=== PATIENT | male | born 1965 | race Caucasian/White ===

== ENCOUNTER 2021-06-18 10:04 | Outpatient (CLI) | payer BC, SELFPAY ==
[2021-06-18 10:29] LABS: Basophils Absolute Auto 0.1 K/mm3 (0.0-0.1); Basophils Percent Auto 0.8 % (0.2-1.2); Eosinophils Absolute Auto 0.2 K/mm3 (0-0.3); Eosinophils Percent Auto 2.4 % (0-4.4); Hemoglobin 14.7 g/dL (14.0-18.0); Immature Granulocyte Absolute 0.02 K/mm3 (0.00-0.031); Immature Granulocyte Percent A 0.2 % (0-0.5); Lymphocytes Absolute Auto 3.11 K/mm3 (0.9-3.2); Mean Corpuscular HGB Conc 33.4 g/dl (32-36); Mean Corpuscular Hemoglobin 31.5 pg (26-34); Mean Corpuscular Volume 94.2 fl (80-100); Mean Platelet Volume 9.6 fl (7.4-10.4); Monocytes Absolute Auto 0.7 K/mm3 (0.1-0.6); Monocytes Percent Auto 7.9 % (2.6-8.5); Neutrophils Absolute Auto 4.5 K/mm3 (1.3-6.7); Neutrophils Percent Auto 52.7 % (45.5-73.1); Platelet Count Result 462 k/mm3 (150-375); Red Blood Count 4.67 M/mm3 (4.6-6.20); Red Cell Distribution Width 13.2 % (11.5-14.5); White Blood Count 8.6 K/mm3 (4.5-10.0)
== END 2021-06-18 10:05 | disposition home or self-care (01) ==
PROVIDERS: PCP Internal Medicine; Visit Provider Internal Medicine
DX: D47.3 Essential (hemorrhagic) thrombocythemia (principal)
CPT/HCPCS: 36415; 85025

== ENCOUNTER 2021-09-24 09:23 | Outpatient (CLI) | payer BC, SELFPAY ==
[2021-09-24 09:44] LABS: Basophils Absolute Auto 0.1 K/mm3 (0.0-0.1); Basophils Percent Auto 0.8 % (0.2-1.2); Eosinophils Absolute Auto 0.2 K/mm3 (0-0.3); Eosinophils Percent Auto 2.5 % (0-4.4); Hematocrit 43.3 % (42.0-52.0); Hemoglobin 14.4 g/dL (14.0-18.0); Immature Granulocyte Absolute 0.02 K/mm3 (0.00-0.031); Immature Granulocyte Percent A 0.3 % (0-0.5); Lymphocytes Absolute Auto 2.82 K/mm3 (0.9-3.2); Lymphocytes Percent Auto 35.4 % (18.3-44.2); Mean Corpuscular HGB Conc 33.3 g/dl (32-36); Mean Corpuscular Hemoglobin 30.8 pg (26-34); Mean Corpuscular Volume 92.7 fl (80-100); Mean Platelet Volume 9.6 fl (7.4-10.4); Monocytes Absolute Auto 0.6 K/mm3 (0.1-0.6); Monocytes Percent Auto 7.8 % (2.6-8.5); Neutrophils Absolute Auto 4.3 K/mm3 (1.3-6.7); Neutrophils Percent Auto 53.2 % (45.5-73.1); Platelet Count Result 455 k/mm3 (150-375); Red Blood Count 4.67 M/mm3 (4.6-6.20); Red Cell Distribution Width 13.5 % (11.5-14.5)
== END 2021-09-24 09:24 | disposition home or self-care (01) ==
LOC: ANHLAB 09:25
PROVIDERS: PCP Internal Medicine; Visit Provider Internal Medicine
DX: D47.3 Essential (hemorrhagic) thrombocythemia (principal)
CPT/HCPCS: 36415; 82728; 85025

== ENCOUNTER 2022-04-11 08:05 | Outpatient (CLI) | payer BC, SELFPAY ==
[2022-04-11 17:42] LABS: Basophils Absolute Auto 0.1 K/mm3 (0.0-0.1); Basophils Percent Auto 1.1 % (0.2-1.2); Eosinophils Absolute Auto 0.2 K/mm3 (0-0.3); Eosinophils Percent Auto 2.9 % (0-4.4); Hematocrit 43.3 % (42.0-52.0); Hemoglobin 14.5 g/dL (14.0-18.0); Immature Granulocyte Absolute 0.02 K/mm3 (0.00-0.031); Immature Granulocyte Percent A 0.3 % (0-0.5); Lymphocytes Percent Auto 34.1 % (18.3-44.2); Mean Corpuscular HGB Conc 33.5 g/dl (32-36); Mean Corpuscular Hemoglobin 31.4 pg (26-34); Mean Corpuscular Volume 93.7 fl (80-100); Mean Platelet Volume 10.4 fl (7.4-10.4); Monocytes Absolute Auto 0.6 K/mm3 (0.1-0.6); Neutrophils Absolute Auto 4.3 K/mm3 (1.3-6.7); Neutrophils Percent Auto 53.6 % (45.5-73.1); Platelet Count Result 489 k/mm3 (150-375); Red Blood Count 4.62 M/mm3 (4.6-6.20); Red Cell Distribution Width 13.3 % (11.5-14.5); White Blood Count 7.9 K/mm3 (4.5-10.0)
[2022-04-11 18:43] LABS: Alanine Aminotransferase 19 U/L (6-50); Albumin Level 4.5 g/dL (3.5-5.1); Alkaline Phosphatase 80 U/L (38-126); Anion Gap 6 mmol/L (8-16); Aspartate Amino Transferase 39 U/L (17-59); Bilirubin,Total 0.3 mg/dL (0.2-1.3); Blood Urea Nitrogen 12 mg/dL (9-20); Calcium 8.4 mg/dL (8.4-10.2); Carbon Dioxide 26 mmol/L (22-30); Chloride 107 mmol/L (98-107); Cholesterol 182 mg/dL (0-200); Estimated Glomerular Filt Rate > 60; Glucose 113 mg/dL (65-110); HDL Direct 31 mg/dL; Potassium 4.1 mmol/L (3.4-5.0); Sodium 139 mmol/L (137-145); Triglycerides 189 mg/dL (<150)
[2022-04-11 18:54] LABS: LDL Cholesterol Direct 90 mg/dL
[2022-04-11 21:27] LABS: Hemoglobin A1C 6.1 % (<5.7)
== END 2022-04-11 08:06 | disposition home or self-care (01) ==
LOC: ANHGOSHLAB 08:06
PROVIDERS: PCP Internal Medicine; Visit Provider Internal Medicine
DX: D47.3 Essential (hemorrhagic) thrombocythemia (principal); E78.49 Other hyperlipidemia; I10 Essential (primary) hypertension; R73.9 Hyperglycemia, unspecified
CPT/HCPCS: 36415; 80053; 80061; 83036; 85025

== ENCOUNTER 2022-04-20 09:44 | Outpatient (CLI) | payer BC, SELFPAY ==
--- NOTE | ~2022-04-20 | CT_ITS ---
EXAMINATION: CT lung screening DATE: 04/20/2022 09:59 INDICATION: Personal history of nicotine dependence, current smoker with 30 pack year history TECHNIQUE: Computed tomography (CT) of the chest was performed without intravenous contrast. The dose -length product (DLP) was 147.56 mGy-cm. Automated exposure control and iterative reconstruction tech [email or web address] were employed. COMPARISON: None FINDINGS: There is moderate emphysema. There is a 4 mm subpleural nodule in the left lower lobe. The lungs are free of acute opacities. No pleural effusion or pneumothorax. No pathologically enlarged th oracic lymph nodes are identified. The heart size is normal. Calcified coronary artery atherosclerosi s is noted. IMPRESSION: 1. Lung-RADS category 2: Benign appearance or behavior. Continue annual screening with noncontrast lo w-dose chest CT in 12 months. Reviewed, dictated and finalized at location [facility]. R MACHINE OPERATOR IMPRESSION: 1. Lung-RADS category 2: Benign appearance or behavior. Continue annual screeni ng with noncontrast low-dose chest CT in 12 months.
== END 2022-04-20 09:45 | disposition home or self-care (01) ==
PROVIDERS: PCP Internal Medicine; Visit Provider Internal Medicine
DX: Z12.2 Encounter for screening for malignant neoplasm of respiratory organs (principal); F17.210 Nicotine dependence, cigarettes, uncomplicated; I10 Essential (primary) hypertension; R73.9 Hyperglycemia, unspecified
CPT/HCPCS: 71271

== ENCOUNTER 2023-01-10 08:49 | Outpatient (CLI) | payer OTHER, SELFPAY ==
[2023-01-10 11:39] LABS: Alanine Aminotransferase 26 U/L (6-50); Albumin Level 4.1 g/dL (3.5-5.1); Alkaline Phosphatase 69 U/L (38-126); Anion Gap 2 mmol/L (8-16); Aspartate Amino Transferase 52 U/L (17-59); Bilirubin,Total 0.6 mg/dL (0.2-1.3); Blood Urea Nitrogen 12 mg/dL (9-20); Calcium 8.4 mg/dL (8.4-10.2); Carbon Dioxide 29 mmol/L (22-30); Chloride 105 mmol/L (98-107); Cholesterol 188 mg/dL (0-200); Estimated Glomerular Filt Rate > 60; Glucose 113 mg/dL (65-110); HDL Direct 33 mg/dL; Potassium 4.1 mmol/L (3.4-5.0); Sodium 136 mmol/L (137-145); Triglycerides 147 mg/dL (<150)
[2023-01-10 11:42] LABS: Basophils Absolute Auto 0.1 K/mm3 (0.0-0.1); Basophils Percent Auto 0.7 % (0.2-1.2); Eosinophils Absolute Auto 0.3 K/mm3 (0-0.3); Eosinophils Percent Auto 3.3 % (0-4.4); Hematocrit 42.4 % (42.0-52.0); Hemoglobin 14.1 g/dL (14.0-18.0); Immature Granulocyte Absolute 0.02 K/mm3 (0.00-0.031); Immature Granulocyte Percent A 0.2 % (0-0.5); Lymphocytes Absolute Auto 2.68 K/mm3 (0.9-3.2); Lymphocytes Percent Auto 31.2 % (18.3-44.2); Mean Corpuscular HGB Conc 33.3 g/dl (32-36); Mean Corpuscular Hemoglobin 30.9 pg (26-34); Mean Corpuscular Volume 92.8 fl (80-100); Mean Platelet Volume 10.5 fl (7.4-10.4); Monocytes Absolute Auto 0.8 K/mm3 (0.1-0.6); Monocytes Percent Auto 8.7 % (2.6-8.5); Neutrophils Absolute Auto 4.8 K/mm3 (1.3-6.7); Neutrophils Percent Auto 55.9 % (45.5-73.1); Platelet Count Result 459 k/mm3 (150-375); Red Blood Count 4.57 M/mm3 (4.6-6.20); Red Cell Distribution Width 13.2 % (11.5-14.5); White Blood Count 8.6 K/mm3 (4.5-10.0)
[2023-01-10 11:51] LABS: LDL Cholesterol Direct 115 mg/dL
[2023-01-10 17:35] LABS: Prostate Specific Antigen 0.9 ng/mL (< OR = 4.0)
[2023-01-10 20:50] LABS: Hemoglobin A1C 5.7 % (<5.7)
== END 2023-01-10 08:50 | disposition home or self-care (01) ==
PROVIDERS: Nurse Practitioner; PCP Internal Medicine; Visit Provider Nurse Practitioner
DX: E78.49 Other hyperlipidemia (principal); J44.9 Chronic obstructive pulmonary disease, unspecified; Z12.5 Encounter for screening for malignant neoplasm of prostate; R73.9 Hyperglycemia, unspecified
CPT/HCPCS: 36415; 80053; 80061; 83036; 84153; 85025; G0103

== ENCOUNTER → 2023-05-30 08:07 | Outpatient (CLI) | payer OTHER, SELFPAY ==
--- NOTE | ~2023-05-30 | CT_ITS ---
CT Scan of the Chest without Contrast: Clinical Indication: Lung cancer screening, personal history of nicotine dependence Technique: Contiguous sections were acquired throughout the chest without intravenous contrast. Dose reduction technique was used on this scan by utilizing automated exposure control and iterative recon struction technique. The dose-length product (DLP) was 116.52 mGy-cm. COMPARISON: 04/20/2022 Findings: There is no evidence of any significant mediastinal, hilar or axillary lymphadenopathy. The mediastin al soft tissues appear normal. There is no evidence of pleural or pericardial effusion. The lungs are clear. No pulmonary nodules or infiltrates are noted. Moderate to advanced emphysema no yeimi. Images through the upper abdomen reveal no abnormalities. Impression: Lung RADS 1: Negative. 12 month follow-up screening CT advised. Moderate to advanced emphysema. Reviewed, dictated and finalized at [facility]. [facility] Impression: Lung RADS 1: Negative. 12 month follow-up screening CT advised. Moderate to advanced emphysema.
== END ==
PROVIDERS: PCP Internal Medicine; Visit Provider Nurse Practitioner
DX: Z12.2 Encounter for screening for malignant neoplasm of respiratory organs (principal); J43.9 Emphysema, unspecified; Z87.891 Personal history of nicotine dependence
CPT/HCPCS: 71271

== ENCOUNTER 2023-07-09 18:30 | Observation (INO) | payer OTHER, SELFPAY ==
--- NOTE | ~2023-07-09 | CT_ITS ---
CT of the Abdomen and Pelvis: Indication: Abdominal pain Technique: 2.5 mm axial scans were obtained through the abdomen and pelvis following intravenous adm inistration of 100 cc of Omnipaque 350. Dose reduction technique was used on this scan by utilizing a utomated exposure control and iterative reconstruction technique. The dose-length product (DLP) was 4 67.11 mGy-cm. Findings: Scans through the lung bases demonstrate mild emphysematous change and right basilar atele ctasis. The liver, spleen, pancreas, gallbladder, adrenals and kidneys are within normal limits. There are at herosclerotic calcifications of the aorta. No lymphadenopathy. No bowel obstruction. Appendix is dilated to 14 mm with periappendiceal inflammatory change. No absce ss or free air.. Images through the pelvis were performed. Urinary bladder unremarkable. Prostate gland and seminal ve sicles are unremarkable. No ascites. Bilateral L5 pars interarticularis defects are present. Impression: Acute appendicitis, as detailed above. No abscess or free air. Reviewed, dictated and finalized at [facility]. Impression: Acute appendicitis, as detailed above. No abscess or free air.
[2023-07-09 19:47] VITALS: BP 148/85; PULSE 109; RESP 13; TEMP 36.6; O2SAT 97
[2023-07-09 19:59] LABS: Hematocrit 41.3 % (42.0-52.0); Hemoglobin 14.1 g/dL (14.0-18.0); Mean Corpuscular HGB Conc 34.1 g/dl (32-36); Mean Corpuscular Hemoglobin 30.9 pg (26-34); Mean Corpuscular Volume 90.6 fl (80-100); Mean Platelet Volume 10.1 fl (7.4-10.4); Platelet Count Result 486 k/mm3 (150-375); Red Blood Count 4.56 M/mm3 (4.6-6.20); Red Cell Distribution Width 13.6 % (11.5-14.5); White Blood Count 21.6 K/mm3 (4.5-10.0)
[2023-07-09 20:11] LABS: Alanine Aminotransferase 15 U/L (6-50); Albumin Level 4.4 g/dL (3.5-5.1); Alkaline Phosphatase 90 U/L (38-126); Anion Gap 8 mmol/L (8-16); Aspartate Amino Transferase 27 U/L (17-59); Bilirubin,Total 1.2 mg/dL (0.2-1.3); Blood Urea Nitrogen 14 mg/dL (9-20); Calcium 9.3 mg/dL (8.4-10.2); Carbon Dioxide 25 mmol/L (22-30); Chloride 99 mmol/L (98-107); Estimated CRCL calculation 85 ml/min; Estimated Glomerular Filt Rate > 60; Glucose 148 mg/dL (65-110); Lipase 39 U/L (23-300); Potassium 3.5 mmol/L (3.4-5.0); Sodium 132 mmol/L (137-145)
[2023-07-09 20:22] LABS: Lymphocytes Absolute Manual 1.72 K/mm3 (1.1-4.5); Monocytes Absolute Manual 0.64 K/mm3 (0.1-0.90); Monocytes Percent Manual 3 % (3-9); Neutrophils Percent Manual 89 % (46-73); Platelet Estimate Increased (Adequate); Total Cells Counted 100
[2023-07-09 20:23] LABS: Schistocytes None Seen
[2023-07-09 23:42] VITALS: BP 129/63; PULSE 118; RESP 34; O2SAT 100
[2023-07-09 23:47] LABS: Appearance Urine Clear (Clear); Bacteria Urine None Seen /hpf; Bilirubin Urine 1+ (Negative); Blood Urine Trace (Negative); Color Urine Dark Yellow (Yellow); Glucose Urine UA Negative (Negative); Ketones Urine Trace mg/dL (Negative); Leukocyte Esterase Ur Trace LEU/UL (Negative); Nitrate Urine Negative (Negative); Non Pathogenic Casts 0-2; Protein Urine 1+ mg/dL (Negative); Specific Grav Ur 1.025 (1.001-1.035); Squamous Epithelial Cell Urine Occasional /hpf (Few); WBC Urine 0-5 /hpf (0-3); pH Urine 5.5 (5.0-9.0)
--- NOTE | 2023-07-09 23:48 | ED.ABDPAIN ---
HPI - Abdominal Pain General Chief Complaint: Abdominal Pain Stated Complaint: abd pain Time Seen by Provider: 07/09/23 23:35 Source: patient Mode of arrival: ambulatory Limitations: no limitations History of Present Illness HPI narrative: This is a 58-year-old male who presents to the ED with chief complaint of diffuse abdominal pain for the past 2 days. He has been seen for constipation by his PCP and has been doing his stool softeners. He is having daily bowel movements although they are loose in nature. Endorses nausea but denies any vomiting. Endorses ?low-grade fevers of 99.5. Denies GI bleeding symptoms. Denies chest pain, shortness of breath, cough, back pain. Denies urinary symptoms or right flank pain. No abdominal surgical history Related Data Home Medications Medication Instructions Recorded Confirmed albuterol sulfate 90 mcg/actuation 1 puff inhalation Q4H PRN 04/25/19 07/10/23 aerosol inhaler (Ventolin HFA) Shortness Of Breath Or Wheezing aspirin 81 mg tablet,delayed 81 mg PO DAILY 06/16/21 07/10/23 release (Adult Low Dose Aspirin) fluticasone propionate 50 2 spray intranasal DAILY 11/09/22 07/10/23 mcg/actuation nasal spray,suspension atorvastatin 10 mg tablet 10 mg PO DAILY 07/10/23 07/10/23 sertraline 50 mg tablet 25 mg PO DAILY 07/10/23 07/10/23 Allergies Allergy/AdvReac Type Severity Reaction Status Date / Time No Known Allergies Allergy Verified 05/28/23 08:58 Review of Systems Review of Systems: All systems as dictated in HPI [facility] Past Medical History Medical History Anxiety COPD (chronic obstructive pulmonary disease) Hyperlipidemia due to dietary fat intake Hypertension Osteoarthritis involving multiple joints on both sides of body Plantar fasciitis Surgical History Surgical History H/O endoscopy Status post rotator cuff repair Family History Family History Mother Diabetes mellitus Sibling Diabetes mellitus Father Family history of transient ischemic attacks Family history of coronary artery disease Social History Social History Smoking packs per day: 0.5 Smoking cigarettes per day: 10.0 Smoking status: Current every day smoker Tobacco type: cigarettes Alcohol intake: never Substance use: current Substance use type: marijuana Do You Feel Safe in your Home?: Yes Lack of Transportation: No Lack of Food: Never True Current Housing: I Have Housing Concerned About Future Housing: No Difficulty Paying Gas/Electric Bills: No Difficulty Paying for Meds: No Currently Unemployed: No Education: High School Diploma/GED Difficulty w/ Childcare or Family Care: No Spiritual care concerns: No Exam Narrative: GENERAL: Appears in pain. Well nourished. No diaphoresis HEAD: Normocephalic, atraumatic. EYES: PERRLA and EOMI. ENT: Nares clear, no rhinorrhea or epistaxis. Mucous membranes moist. Oropharynx without tonsillar hypertrophy exudate or other lesions. NECK: Supple. No adenopathy or masses. CHEST: No respiratory distress. Clear to auscultation. No wheezes rales or rhonchi HEART: Regular rate and rhythm. No murmur heard. Normal peripheral pulses. ABDOMEN: Diffuse generalized tenderness, much worse in the right lower quadrant. McBurney's point is positive. Guarding present. No rigidity. nondistended, normal active bowel sounds. MSK: Normal range of motion. No edema. SKIN: Warm, dry, no rash. NEURO: Alert and oriented x3. No focal deficits. PSYCH: Normal mood and affect. Course Vital Signs Vital signs: Vital Signs Temperature 97.9 F 07/09/23 19:47 Pulse Rate 109 H 07/09/23 19:47 Respiratory Rate 13 07/09/23 19:47 Blood Pressure 148/85 H 07/09/23 19:47 Pulse Oximetry 97 03
[2023-07-09 23:54] LABS: Add Urine Microscopic? YES
[2023-07-10] VITALS (16 sets, daily range): BP systolic 96–152; BP diastolic 52–87; PULSE 75–110; RESP 14–22; TEMP 36.3–37.3; O2SAT 92–100; BMI 27.7
[2023-07-10] MEDS: HYDROmorphone HCL INJ (*CRX) 1 MG/ML SYR 0.5 MG IV PUSH ×4 (00:16→12:02)
[2023-07-10] MEDS: ONDANSETRON INJ 4 MG/2 ML VIAL IV PUSH (00:16)
[2023-07-10] MEDS: SODIUM CHLORIDE 0.9% IV 1,000 ML 999 ML IV CONT ×2 (00:17→02:12)
[2023-07-10] MEDS: metroNIDAZOLE 500 MG/ISO 100ML 500 MG/100 ML BAG 100 MG IVPB (01:29)
--- NOTE | 2023-07-10 01:33 | PC.NURSE ---
Donna Ott cell [phone] work phone [phone] would like to be contacted once patient arrives to floor to be given a room number as well as once they have a time for the surgery.
[2023-07-10 01:45] LABS: Lactic Acid Reflex 1.2 mmol/L (0.7-2.0)
[2023-07-10] MEDS: PIPERACILLN/TAZ 3.375GM/NS50ML 3.375 GM/50 ML BAG IVPB ×4 (02:26→20:19)
[2023-07-10] MEDS: SODIUM CHLORIDE 0.9% IV 1,000 ML 125 ML IV CONT ×2 (02:27→11:28)
--- NOTE | 2023-07-10 02:39 | ADMGEN ---
This patient, Carlos A Ott, was admitted to Medical Room 244-. Patient/family oriented to hospital policies and general routines including ID bracelet, bed and alarms, visiting hours, pain management, procedures, bathroom and other care routines, personal items, smoking policy, room service/diet, and visiting hours. Information on how to activate the Rapid Response Team has been discussed. Patient/Family are encouraged to report perceived risks to care and to ask questions if they do not understand what they are told or what they should do.
[2023-07-10 08:02] LABS: Hematocrit 36.7 % (42.0-52.0); Hemoglobin 12.3 g/dL (14.0-18.0); Mean Corpuscular HGB Conc 33.5 g/dl (32-36); Mean Corpuscular Hemoglobin 31.1 pg (26-34); Mean Corpuscular Volume 92.7 fl (80-100); Mean Platelet Volume 10.1 fl (7.4-10.4); Platelet Count Result 426 k/mm3 (150-375); Red Blood Count 3.96 M/mm3 (4.6-6.20); Red Cell Distribution Width 13.7 % (11.5-14.5)
[2023-07-10 08:13] LABS: Anion Gap 2 mmol/L (8-16); Blood Urea Nitrogen 13 mg/dL (9-20); Calcium 8.2 mg/dL (8.4-10.2); Carbon Dioxide 25 mmol/L (22-30); Chloride 105 mmol/L (98-107); Estimated CRCL calculation 75 ml/min; Estimated Glomerular Filt Rate > 60; Glucose 124 mg/dL (65-110); Potassium 4.1 mmol/L (3.4-5.0); Sodium 132 mmol/L (137-145)
--- NOTE | 2023-07-10 11:38 | WPDCN ---
Assessment and Plan Assessment and plan (1) Acute appendicitis: Code(s): K35.80 - Unspecified acute appendicitis Status: Acute Assessment and Plan: Patient has acute appendicitis. Is been going on for a couple of days. No perforation or abscess seen on CT scan. He definitely has some localized peritonitis. He will need to go to the operating room this afternoon for emergent laparoscopic appendectomy possible conversion open appendectomy. Risks, benefits, indications, and expected outcomes were discussed in detail with the patient and/or family. They understand and I have answered all other questions. They wished to proceed with surgery as outlined above. HPI Data of Consult Date/Time: 07/10/23 11:38 Requesting Physician: Torrie Wheeler DO Primary Care Provider: Robert Warren DO Consult Narrative Reason for consult: Acute appendicitis Narrative: Carlos A Ott is a 58 year old male admitted last evening with a 3 day history of worsening right lower quadrant abdominal pain. He had elevated white blood count [id number] scan abdomen pelvis showed a acutely inflamed appendix with periappendiceal inflammation but no perforation or abscess. He has not had previous abdominal surgery. He is hemodynamically stable. Started on IV antibiotics and has been kept NPO. Review of Systems Review of Systems: The remainder of the review of systems to include constitutional, HEENT, cardiovascular, respiratory, GI, , integumentary, musculoskeletal, endocrine, immunologic, hematologic, psychiatric, and neurologic are all negative except for which is mentioned above in the HPI. [facility] Past Medical History Medical History Anxiety COPD (chronic obstructive pulmonary disease) Hyperlipidemia due to dietary fat intake Hypertension Osteoarthritis involving multiple joints on both sides of body Plantar fasciitis Surgical History Surgical History H/O endoscopy Status post rotator cuff repair Family History Family History Mother Diabetes mellitus Sibling Diabetes mellitus Father Family history of transient ischemic attacks Family history of coronary artery disease Social History Social History Smoking packs per day: 0.5 Smoking cigarettes per day: 10.0 Smoking status: Current every day smoker Tobacco type: cigarettes Alcohol intake: never Substance use: current Substance use type: marijuana Do You Feel Safe in your Home?: Yes Lack of Transportation: No Lack of Food: Never True Current Housing: I Have Housing Concerned About Future Housing: No Difficulty Paying Gas/Electric Bills: No Difficulty Paying for Meds: No Currently Unemployed: No Education: High School Diploma/GED Difficulty w/ Childcare or Family Care: No Spiritual care concerns: No Meds Home Medications and Allergies Home Medications Medication Instructions Recorded Confirmed Type albuterol sulfate 90 mcg/actuation 1 puff inhalation Q4H PRN 04/25/19 07/10/23 History aerosol inhaler (Ventolin HFA) Shortness Of Breath Or Wheezing aspirin 81 mg tablet,delayed 81 mg PO DAILY 06/16/21 07/10/23 History release (Adult Low Dose Aspirin) fluticasone propionate 50 2 spray intranasal DAILY 11/09/22 07/10/23 History mcg/actuation nasal spray,suspension losartan 50 mg tablet 50 mg PO DAILY #90 tabs 04/10/23 07/10/23 Rx lorazepam 0.5 mg tablet 0.5 mg PO BID PRN anxiety #60 tabs 06/11/23 07/10/23 Rx atorvastatin 10 mg tablet 10 mg PO DAILY 07/10/23 07/10/23 History sertraline 50 mg tablet 25 mg PO DAILY 07/10/23 07/10/23 History Allergies Allergy/AdvReac Type Severity Reaction Status Date / Time No Known Allergies Allergy Verified 05/28/23 08:58 Vital
--- NOTE | 2023-07-10 11:44 | WPDHPUPDATE1 ---
History and Physical Update Update Date/Time: 07/10/23 11:44 History and Physical has been reviewed, including an updated exam of the patient. There are NO changes in the patient's condition. Risks, benefits, and alternatives have been discussed and questions answered. Patient agrees to proceed with procedure.
--- NOTE | 2023-07-10 13:32 | PC.NURSE ---
Report called to Easton SRINIVASAN in preop.
--- NOTE | 2023-07-10 14:10 | PC.NURSE ---
To OR via bed. Family at bedside. Voiding without difficulty.
--- NOTE | 2023-07-10 14:17 | PM.IMHP ---
H&P: HPI History of Present Illness Date/Time: 07/10/23 14:17 Chief Complaint: abdominal pain Narrative: This is a 58-year-old male with a past medical history hypertension, hyperlipidemia, COPD, chronic back pain and anxiety that presented to the ED on 07/09/2023 due to right lower quadrant abdominal pain. Patient had been experiencing the pain for approximately 4 days. States he took a tramadol from his without improvement of symptoms. He did not eat the past 2 days due to feeling like his abdominal pain was from constipation and thought if he ate it would make the constipation worse. He did take some Ex-Lax causing diarrhea prior to coming into the ED. states he had a elevated temperature of 99.6?. Denies nausea vomiting. He has no history of abdominal surgeries. Workup in the ED revealed an elevated white count of 21.6, UA with trace ketones, 1+ protein and 1+ bilirubin. CT of the abdomen and pelvis revealing acute appendicitis. Patient was started on IV fluids and Zosyn. General surgery consulted. Patient admitted for further management of acute appendicitis. Will [facility] Past Medical History Medical History (Updated 07/10/23 @ 14:22 by Nereida Bhatti PA-C) Anxiety Chronic back pain COPD (chronic obstructive pulmonary disease) Hyperlipidemia due to dietary fat intake Hypertension Osteoarthritis involving multiple joints on both sides of body Plantar fasciitis Surgical History Surgical History H/O endoscopy Status post rotator cuff repair Family History Family History Mother Diabetes mellitus Sibling Diabetes mellitus Father Family history of transient ischemic attacks Family history of coronary artery disease Social History Social History (Updated 07/10/23 @ 14:22 by Nereida Bhatti PA-C) Smoking packs per day: 0.5 Smoking cigarettes per day: 10.0 Years smoked: 40 Smoking pack-years: 20.00 Smoking status: Current every day smoker Tobacco type: cigarettes Alcohol intake: never Substance use: current Substance use type: marijuana Do You Feel Safe in your Home?: Yes Lack of Transportation: No Lack of Food: Never True Current Housing: I Have Housing Concerned About Future Housing: No Difficulty Paying Gas/Electric Bills: No Difficulty Paying for Meds: No Currently Unemployed: No Education: High School Diploma/GED Difficulty w/ Childcare or Family Care: No Spiritual care concerns: No Meds Home Medications and Allergies Home Medications Medication Instructions Recorded Confirmed Type albuterol sulfate 90 mcg/actuation 1 puff inhalation Q4H PRN 04/25/19 07/10/23 History aerosol inhaler (Ventolin HFA) Shortness Of Breath Or Wheezing aspirin 81 mg tablet,delayed 81 mg PO DAILY 06/16/21 07/10/23 History release (Adult Low Dose Aspirin) fluticasone propionate 50 2 spray intranasal DAILY 11/09/22 07/10/23 History mcg/actuation nasal spray,suspension losartan 50 mg tablet 50 mg PO DAILY #90 tabs 04/10/23 07/10/23 Rx lorazepam 0.5 mg tablet 0.5 mg PO BID PRN anxiety #60 tabs 06/11/23 07/10/23 Rx atorvastatin 10 mg tablet 10 mg PO DAILY 07/10/23 07/10/23 History sertraline 50 mg tablet 25 mg PO DAILY 07/10/23 07/10/23 History Allergies Allergy/AdvReac Type Severity Reaction Status Date / Time No Known Allergies Allergy Verified 05/28/23 08:58 Vital Signs Vital Signs - 24 hr 07/09/23 19:47 07/09/23 23:42 07/10/23 02:06 Temperature 97.9 F 98.2 F Pulse Rate 109 H 118 H 90 Respiratory Rate 13 34 H 15 Blood Pressure 148/85 H 129/63 125/70 Pulse Oximetry 97 100 94 Oxygen Delivery 07/10/23 02:38 07/10/23 02:38 07/10/23 02:52 Temperature 98.2 F Pulse Rate 86 92 Respiratory Rate 20 18 Blood Pressure 130/77 137/75 Pulse Oximetry 98 95 Oxygen Delivery Room Air 07/10/23 04:51 07/10/23 08:
--- NOTE | 2023-07-10 15:57 | WPDANESEPPF ---
Anes - Initial Pre Proc Eval Procedure: Operation Date: 07/10/23 16:00 Proposed Procedures p Laparoscopic Appendectomy - Edy Chandra MD Date/Time: 07/10/23 15:57 Surgeon: Torrie Wheeler DO Pre Op Diagnosis: Acute Appendicitis Patient Data Age: 58 Gender: M Height: 1.73 m Weight: 82.7 kg Last Vital Signs Temp 37.3 C 07/10/23 14:56 Pulse 84 07/10/23 14:56 Resp 14 07/10/23 14:56 BP 134/63 07/10/23 14:56 Pulse Ox 93 07/10/23 14:56 O2 Del Method Room Air 07/10/23 14:56 Allergies Allergy/AdvReac Type Severity Reaction Status Date / Time No Known Allergies Allergy Verified 05/28/23 08:58 Home Medications Medication Instructions Recorded Confirmed Type albuterol sulfate 90 mcg/actuation 1 puff inhalation Q4H PRN 04/25/19 07/10/23 History aerosol inhaler (Ventolin HFA) Shortness Of Breath Or Wheezing aspirin 81 mg tablet,delayed 81 mg PO DAILY 06/16/21 07/10/23 History release (Adult Low Dose Aspirin) fluticasone propionate 50 2 spray intranasal DAILY 11/09/22 07/10/23 History mcg/actuation nasal spray,suspension losartan 50 mg tablet 50 mg PO DAILY #90 tabs 04/10/23 07/10/23 Rx lorazepam 0.5 mg tablet 0.5 mg PO BID PRN anxiety #60 tabs 06/11/23 07/10/23 Rx atorvastatin 10 mg tablet 10 mg PO DAILY 07/10/23 07/10/23 History sertraline 50 mg tablet 25 mg PO DAILY 07/10/23 07/10/23 History Laboratory Tests 07/09/23 07/09/23 07/10/23 19:44 23:35 01:21 WBC 21.6 H K/mm3 (4.5-10.0) RBC 4.56 L M/mm3 (4.6-6.20) Hgb 14.1 g/dL (14.0-18.0) Hct 41.3 L % (42.0-52.0) MCV 90.6 fl (80-100) MCH 30.9 pg (26-34) MCHC 34.1 g/dl (32-36) RDW 13.6 % (11.5-14.5) Plt Count 486 H k/mm3 (150-375) MPV 10.1 fl (7.4-10.4) Immature Gran % (Auto) Not Reportable Neut % (Auto) Not Reportable Lymph % (Auto) Not Reportable [place] % (Auto) Not Reportable Eos % (Auto) Not Reportable Baso % (Auto) Not Reportable Lymph # (Auto) Not Reportable [place] # (Auto) Not Reportable Eos # (Auto) Not Reportable Baso # (Auto) Not Reportable Abs Immat Gran (auto) Not Reportable Absolute Neuts (auto) Not Reportable Absolute Nucleated RBC Not Reportable Total Counted 100 Neutrophils % (Manual) 89 H % (46-73) Lymphocytes % (Manual) 8.0 L % (18-44) Monocytes % (Manual) 3 % (3-9) Nucleated RBC % Not Reportable Abs Lymphs (Manual) 1.72 K/mm3 (1.1-4.5) Abs Monocytes (Manual) 0.64 K/mm3 (0.1-0.90) Platelet Estimate Increased (Adequate) Schistocytes None seen Sodium 132 L mmol/L (137-145) Potassium 3.5 mmol/L (3.4-5.0) Chloride 99 mmol/L (98-107) Carbon Dioxide 25 mmol/L (22-30) Anion Gap 8 mmol/L (8-16) BUN 14 mg/dL (9-20) Creatinine 0.90 mg/dL (0.7-1.3) Estim Creat Clear Calc 85 ml/min Estimated GFR > 60 (59 - ) Glucose 148 H mg/dL (65-110) Lactic Acid 1.2 mmol/L (0.7-2.0) Calcium 9.3 mg/dL (8.4-10.2) Total Bilirubin 1.2 mg/dL (0.2-1.3) AST 27 U/L (17-59) ALT 15 U/L (6-50) Alkaline Phosphatase 90 U/L (38-126) Total Protein 8.0 g/dL (6.3-8.2) Albumin 4.4 g/dL (3.5-5.1) Lipase 39 U/L (23-300) Urine Color Dark yellow (Yellow) Urine Appearance Clear (Clear) Urine pH 5.5 (5.0-9.0) Ur Specific [place] 1.025 (1.001-1.035) Urine Protein 1+ H mg/dL (Negative) Urine Glucose (UA) Negative mg/dL (Negative) Urine Ketones Trace H mg/dL (Negative)
[2023-07-10] MEDS: LACTATED RINGERS 1,000 ML 30 ML IV CONT (16:30)
[2023-07-10] MEDS: BUPivacaine HCL 0.5% 10 ML AMP 20 ML INFILTRATE (16:50)
[2023-07-10] MEDS: LIDO 1%/EPINEPHRINE 1:100,000 20 ML VIAL INFILTRATE (16:50)
--- NOTE | 2023-07-10 17:55 | W.PM.PROC2 ---
Procedure Note - Detailed Date of Procedure 07/10/23 Pre-op Diagnosis Acute Appendicitis Post-op Diagnosis Same Procedure Performed Laparoscopic appendectomy Surgeon Edy Chandra MD Anesthesia General Indications Patient is a 58-year-old white male presented to the emergency with a 3 day history of right lower quadrant abdominal pain. White blood cell count elevated 21,000. CT scan abdomen pelvis showed a dilated acutely inflamed appendix without evidence of perforation or periappendiceal abscess. He presents now for emergent laparoscopic appendectomy. Findings The appendix was very inflamed but not gangrenous. There was phlegmon the right lower quadrant but no abscess. No perforation the appendix was seen. Description of Procedure After informed consent was obtained patient brought to the operating room was placed supine position and general endotracheal anesthesia was administered. The abdomen was then prepped and draped usual sterile fashion after placement of Alvarado catheter decompress the bladder. I then entered the abdomen left upper quadrant utilizing a 5mm Optiview port. Once inside the abdomen insufflated to adequate pneumoperitoneum of 15 mm mercury of CO2. Additional trocar ports to include a 12mm periumbilical trocar port and then 2 5mm trocar ports in the suprapubic region and the right lower quadrant were all placed. The appendix is visualized the right lower quadrant. There was quite a bit inflammatory reaction and peritonitis in the region. There was some fibropurulent find the terminal ileum. Working through these ports I was able to separate the terminal ileum from the appendix. The base of the appendix was seen and then I dissected window through the mesoappendix. Attempt was used to divide the appendix with a 45mm Endo-JONATAN stapler. However there appeared to be a miss fire of the stapler with a was cutting of the appendix but no stapling of the appendix. Locally there was about 0.5cm of the cecal base. I was able to hold the appendiceal base with a Paulie and elevated so that I could place a 0 Vicryl endoloop around the appendiceal stump. The stump was ligated with 0 in Vicryl suture to close the appendiceal orifice. I then treated the end of the of appendiceal stump with electrocautery to destroy the mucosa. The mesoappendix was then divided utilizing 2 firings of the 45mm Endo-JONATAN stapler with vascular load. Appendix was then placed in Endo-Catch bag and brought out through the periumbilical trocar port site. The appendix was sent to pathology for examination. I then made at the right lower quadrant the abdomen with sterile saline solution hemostasis was good on the staple lines. The base the appendix at the appendiceal stump was ligated with 0 Vicryl suture. There was no spillage of any fecal material. I then aspirated the fluid from the pelvis and from the right lower quadrant the abdomen. Removed all the trocar ports under visualization all port sites appeared hemostatic. I then allowed the abdomen decompressed. I then irrigated the port sites sterile saline solution. The 12mm periumbilical trocar port fascial defect was then closed utilizing a 0 Vicryl suture in the fascia. I then closed all the port sites with a running subcuticular 4 Monocryl suture to approximate the skin edges. Incisions were then cleaned and skin glue was applied. The patient tolerated the procedure well no complications. All sponges, needles, and instrument counts were correct at the end procedure. EBL was _25__cc. The patient was awakened and taken to recovery in stable and satisfactory condition. Implants None Estimated Blood Loss 25 Drains No Packing No Pathology Yes (Appendix to pathology) Complications No immediate complications Condition Stable Disposition PACU [facility] Billing Surgery - Charge Forward: Surgery Billing
[2023-07-10] MEDS: ALBUTEROL SULFATE (*SP) AEROSOL 1 PUFF INHALATION (18:29)
[2023-07-10] MEDS: HYDROcodone/acetaminophen (*CRX) 5-325 MG TABLET 1 TAB PO (21:05)
[2023-07-11] MEDS: PIPERACILLN/TAZ 3.375GM/NS50ML 3.375 GM/50 ML BAG IVPB ×2 (01:08→09:32)
[2023-07-11] MEDS: HYDROcodone/acetaminophen (*CRX) 5-325 MG TABLET 1 TAB PO (01:11)
[2023-07-11] MEDS: SODIUM CHLORIDE 0.9% IV 1,000 ML 125 ML IV CONT (02:08)
[2023-07-11 03:52] VITALS: BP 117/56; PULSE 73; RESP 17; TEMP 36.6; O2SAT 98
[2023-07-11 06:10] LABS: Hematocrit 34.5 % (42.0-52.0); Hemoglobin 11.2 g/dL (14.0-18.0); Mean Corpuscular HGB Conc 32.5 g/dl (32-36); Mean Corpuscular Hemoglobin 30.8 pg (26-34); Mean Corpuscular Volume 94.8 fl (80-100); Mean Platelet Volume 10.3 fl (7.4-10.4); Platelet Count Result 432 k/mm3 (150-375); Red Blood Count 3.64 M/mm3 (4.6-6.20); Red Cell Distribution Width 13.7 % (11.5-14.5); White Blood Count 15.7 K/mm3 (4.5-10.0)
[2023-07-11 06:37] LABS: Alanine Aminotransferase 12 U/L (6-50); Albumin Level 3.1 g/dL (3.5-5.1); Alkaline Phosphatase 64 U/L (38-126); Anion Gap 5 mmol/L (8-16); Aspartate Amino Transferase 29 U/L (17-59); Bilirubin,Total 0.6 mg/dL (0.2-1.3); Blood Urea Nitrogen 13 mg/dL (9-20); Calcium 7.9 mg/dL (8.4-10.2); Carbon Dioxide 25 mmol/L (22-30); Chloride 106 mmol/L (98-107); Estimated CRCL calculation 68 ml/min; Estimated Glomerular Filt Rate > 60; Glucose 118 mg/dL (65-110); Potassium 3.9 mmol/L (3.4-5.0); Sodium 136 mmol/L (137-145)
--- NOTE | 2023-07-11 07:29 | WPDANESPN ---
Anes - Prog Note Post-Op Date/Time: 07/11/23 07:29 Cardiovascular status: normal Respiratory status: normal Airway patency: baseline Mental status: baseline Post-Op hydration status: normal Vital Signs: Last Vital Signs Temp 36.6 C 07/11/23 03:52 Pulse 73 07/11/23 03:52 Resp 17 07/11/23 03:52 BP 117/56 L 07/11/23 03:52 Pulse Ox 98 07/11/23 03:52 O2 Del Method Room Air 07/10/23 18:57 O2 Flow Rate 10 07/10/23 17:56 Pain Score (VAS): 2 I/O: Intake & Output 07/10/23 07/10/23 07/11/23 15:59 23:59 07:59 Intake Total 1325.0 150 1025 Output Total 100 Balance 1325.0 150 925 Laboratory Tests 07/11/23 05:27 07/11/23 05:26 07/10/23 07/11/23 07/11/23 07:44 05:26 05:27 WBC 18.0 H 15.7 H RBC 3.96 L 3.64 L Hgb 12.3 L 11.2 L Hct 36.7 L 34.5 L MCV 92.7 94.8 MCH 31.1 30.8 MCHC 33.5 32.5 RDW 13.7 13.7 Plt Count 426 H 432 H MPV 10.1 10.3 Sodium 132 L 136 L Potassium 4.1 3.9 Chloride 105 106 Carbon Dioxide 25 25 Anion Gap 2 L 5 L BUN 13 13 Creatinine 0.90 1.00 Estim Creat Clear Calc 75 68 Estimated GFR > 60 > 60 Glucose 124 H 118 H Calcium 8.2 L 7.9 L Total Bilirubin 0.6 AST 29 ALT 12 Alkaline Phosphatase 64 Total Protein 6.0 L Albumin 3.1 L Microbiology 07/10/23 01:21 Blood Blood Culture - Preliminary 07/10/23 01:21 Blood Blood Culture - Preliminary Post-procedural complaints: none Patient Feedback: Patient satisfied with anesthetic care.
[2023-07-11] MEDS: ACETAMINOPHEN 325 MG TABLET 650 MG PO (09:35)
--- NOTE | 2023-07-11 11:30 | PM.PNGS ---
Progress Note: A&P Assessment and Plan (1) Acute appendicitis: Code(s): K35.80 - Unspecified acute appendicitis Status: Acute Assessment and Plan: Postop day 1 following laparoscopic appendectomy. Patient is doing well. No perforation during surgery. There was phlegmon in the right lower quadrant, but no abscess. He is advancing his diet and tolerating this well. He is tolerating activity. Okay from a surgical standpoint to discharge the patient today. Follow up with Dr. Chandra in 2 weeks. Subjective Subjective Date/Time Seen: 07/11/23 10:30 Post Op day: 1 (laparoscopic appendectomy) Patient reports: no new complaints, feels better, tolerating a regular diet, flatus, bowel movement and afebrile Interval history: This is a 58-year-old man who was admitted with acute appendicitis and taken to surgery yesterday. No perforation or abscess seen during surgery. He is doing well this morning. Reports some mild incisional soreness, which he had Tylenol which helped. He denies nausea or vomiting. He has had 2 bowel movements today. He will be having solids for lunch. No acute issues overnight. Review of Systems Review of Systems: All systems reviewed & are unremarkable except as noted in HPI and below Exam Const: General: comfortable and no acute distress GI: Inspection: non-distended and incision (incisions dry and intact) GI Palp: Yes Soft to palpation, Yes Tenderness to palpation present (GI) (incisional) and No Guarding due to palpation present (GI) Auscultation: normal bowel sounds Neuro: General: moves all extremities and no focal motor deficits Extrem: General: no calf tenderness and no edema Psych: Mental Status: mental status grossly normal Insight: Good insight present (Psych) Objective Data Vital Signs Vital Signs: Vital Signs - 24 hr 07/10/23 14:11 07/10/23 14:56 07/10/23 17:56 Temperature 97.7 F 99.1 F 97.4 F L Pulse Rate 81 84 110 H Respiratory Rate 22 H 14 14 Blood Pressure 152/70 H 134/63 140/71 Pulse Oximetry 94 93 100 Oxygen Delivery Room Air Simple Face Mask Oxygen Flow Rate 10 07/10/23 18:11 07/10/23 18:26 07/10/23 18:41 Temperature Pulse Rate 99 94 94 Respiratory Rate 20 16 17 Blood Pressure 147/71 H 152/73 H 137/75 Pulse Oximetry 96 95 95 Oxygen Delivery Room Air Room Air Room Air Oxygen Flow Rate 07/10/23 18:57 07/10/23 18:29 07/10/23 19:21 Temperature 98.0 F Pulse Rate 92 95 88 Respiratory Rate 15 18 18 Blood Pressure 139/87 137/68 Pulse Oximetry 97 92 Oxygen Delivery Room Air Oxygen Flow Rate 07/10/23 20:00 07/10/23 21:25 07/10/23 23:45 Temperature 97.8 F 98.0 F 97.9 F Pulse Rate 85 81 75 Respiratory Rate 18 18 17 Blood Pressure 133/65 128/59 L 96/52 L Pulse Oximetry 92 96 Oxygen Delivery Oxygen Flow Rate 07/11/23 03:52 Temperature 97.9 F Pulse Rate 73 Respiratory Rate 17 Blood Pressure 117/56 L Pulse Oximetry 98 Oxygen Delivery Oxygen Flow Rate Intake/Output Intake/Output: Intake & Output 07/08/23 07/09/23 07/10/23 07/11/23 23:59 23:59 23:59 23:59 Intake Total 2675.0 1385 Output Total 100 Balance 2675.0 1285 Meds/Results Medications: Active Medications Generic Name Dose Route Start Last Admin Trade Name Freq PRN Reason Stop Dose Admin Acetaminophen 650 mg 07/10/23 17:53 07/11/23 09:35 Acetaminophen 325 Mg Tablet PO 650 mg Q6H PRN Administration Mild Pain (1-3) or Fever Hydrocodone Bitart/Acetaminophen 1 tab 07/10/23 17:53 07/11/23 01:11 Hydrocodone/Acetaminophen (*Crx) 5-325 Mg Tablet PO 1 tab Q4H PRN Administration Pain Rated 4-6 Albuterol 1 puff 07/10/23 14:25 07/10/23 18:29 Albuterol Sulfate (*Sp) Aerosol 1 Puff INHALATION 1 puff Q4H PRN Administration Shortness Of Breath Or Wheezing Fluticasone Propionate 2 spray 07/11/23 09:00 07/11/23 09:31 Fluticasone Propionate 0.05% Na Spr 16 Gm Btl (*Bkc) NASAL Not Given GALILEA
--- NOTE | 2023-07-11 12:09 | PM.DS ---
DS: Admitting Diagnosis Discharge Date 07/11/2023 Admitting Diagnosis Acute appendicitis DS: Discharge Diagnosis Discharge Diagnosis (1) Acute appendicitis: Code(s): K35.80 - Unspecified acute appendicitis Status: Acute Assessment and Plan: CT abdomen pelvis showing acute appendicitis. Patient started on IV fluids. IV Zosyn q.6h. Antiemetics and analgesics p.r.n.. General surgery consulted. Patient undergoing appendectomy today tolerated procedure well with no complications noted phlegmon but no abscess afebrile/WBC improving (2) Hypertension: Qualifiers: Hypertension type: primary hypertension Qualified Code(s): I10 - Essential (primary) hypertension Code(s): I10 - Essential (primary) hypertension Status: Acute Assessment and Plan: currently NPO due to surgery. Can restart home medications postoperatively. (3) COPD (chronic obstructive pulmonary disease): Qualifiers: COPD type: unspecified COPD Qualified Code(s): J44.9 - Chronic obstructive pulmonary disease, unspecified Code(s): J44.9 - Chronic obstructive pulmonary disease, unspecified Status: Acute Assessment and Plan: Stable. Not in an acute exacerbation. Continue Flonase and albuterol. (4) Tobacco abuse: Code(s): Z72.0 - Tobacco use Status: Acute Assessment and Plan: Patient denied need for nicotine patch. Smoking cessation discussed DS: Summary Hospital Course Reason for hospitalization: acute appendicitis Hospital Course: Chief Complaint: ?abdominal pain Narrative: This is a 58-year-old male with a past medical history hypertension, hyperlipidemia, COPD, chronic back pain? and anxiety that presented to the ED on 07/09/2023 due to right lower quadrant abdominal pain.? Patient had been experiencing the pain for approximately 4 days.? States he took a tramadol from his without improvement of symptoms.? He did not eat the past 2 days due to feeling like his abdominal pain was from constipation and thought if he ate it would make the constipation worse.? He did take some Ex-Lax causing diarrhea prior to coming into the ED. states he had a elevated temperature of 99.6?.? Denies nausea vomiting.? He has no history of abdominal surgeries.? Workup in the ED revealed an elevated white count of 21.6, UA with trace ketones, 1+ protein and 1+ bilirubin.? CT of the abdomen and pelvis revealing acute appendicitis.? Patient was started on IV fluids and Zosyn.? General surgery consulted.? Patient admitted for further management of acute appendicitis 07/10: DISCHARGED Patient seen today tolerated appendectomy well, no abscess. Remained afebrile overnight WBC trending down, passing gas with 2 BM's and toelrating oral intake with advancement to diet. incisional sites clean dry intact may shower tomorrow per surgery. Patient ambulatory will discharge to home and have follow-up with surgery in 2 weeks Status at Discharge Functional status at discharge: independent ambulation Time Spent with Patient Time attestation: Total time spent providing and/or coordinating discharge services: Time spent: Less than 30 minutes Exam Narrative: Physical Exam: GENERAL: Alert and oriented x 3. No acute distress. Well-nourished. EYES: EOMI. No scleral icterus. PERRLA. HEENT: Moist mucous membranes. No cervical lymphadenopathy. LUNGS: Clear to auscultation bilaterally. No accessory muscle use. CARDIOVASCULAR: Regular rate and rhythm. No murmur. No JVD. S1-S2 ABDOMEN: Soft, mild tenderness and non-distended. No palpable masses. EXTREMITIES: No edema. Non-tender SKIN: No rashes or lesions. Skin warm, dry. NEUROLOGIC: No focal neurological deficits. CN II-XII grossly intact PSYCHIATRIC: Appropriate mood and affect. Good judgement and insight. No visual or auditory hallucinations. No suicidal or homicidal ideation.
[2023-07-11 14:32] VITALS: BP 110/39; PULSE 82; RESP 12; TEMP 36.7; O2SAT 97
== END 2023-07-11 16:00 | disposition home or self-care (01) ==
LOC: ANHED 23:35 → ANH2MED 07-10 02:38
PROVIDERS: Emergency Medicine; Internal Medicine Critical Care Medicine; Surgery; Admitting Provider Internal Medicine; Emergency Provider Physician Assistant; PCP Internal Medicine; Visit Provider Family Medicine
PROC: 0DTJ4ZZ Resection of Appendix, Percutaneous Endoscopic Approach (ICD-10-PCS; CPT 44970; principal; 2023-07-10 16:00)
DX: K35.32 Acute appendicitis with perforation, localized peritonitis, and gangrene, without abscess (principal); I10 Essential (primary) hypertension; J44.9 Chronic obstructive pulmonary disease, unspecified; F41.9 Anxiety disorder, unspecified; E78.5 Hyperlipidemia, unspecified; Z68.27 Body mass index [BMI] 27.0-27.9, adult; E66.8 Other obesity; F17.210 Nicotine dependence, cigarettes, uncomplicated; F12.90 Cannabis use, unspecified, uncomplicated; Z79.51 Long term (current) use of inhaled steroids; Z79.82 Long term (current) use of aspirin; Z79.899 Other long term (current) drug therapy
CPT/HCPCS: 44970; 36415; 74177; 80048; 80053; 83605; 83690; 85025; 85027; 87040; 88304; 94640; 96361; 96365; 96375; 96376; 99285; A9270; G0378; J0330; J0696; J1100; J1170; J1836; J2250; J2405; J2543; J3010; J7030; J7120; Q9967

== ENCOUNTER 2023-07-26 13:04 | Outpatient (CLI) | payer OTHER, SELFPAY ==
[2023-07-26 13:42] LABS: Basophils Absolute Auto 0.1 K/mm3 (0.0-0.1); Basophils Percent Auto 1.1 % (0.2-1.2); Eosinophils Absolute Auto 0.2 K/mm3 (0-0.3); Eosinophils Percent Auto 1.5 % (0-4.4); Hematocrit 42.7 % (42.0-52.0); Immature Granulocyte Absolute 0.05 K/mm3 (0.00-0.031); Immature Granulocyte Percent A 0.5 % (0-0.5); Lymphocytes Absolute Auto 2.75 K/mm3 (0.9-3.2); Lymphocytes Percent Auto 24.8 % (18.3-44.2); Mean Corpuscular HGB Conc 32.8 g/dl (32-36); Mean Corpuscular Hemoglobin 30.9 pg (26-34); Mean Corpuscular Volume 94.3 fl (80-100); Mean Platelet Volume 9.2 fl (7.4-10.4); Monocytes Absolute Auto 0.8 K/mm3 (0.1-0.6); Neutrophils Absolute Auto 7.2 K/mm3 (1.3-6.7); Neutrophils Percent Auto 65.1 % (45.5-73.1); Platelet Count Result 799 k/mm3 (150-375); Red Blood Count 4.53 M/mm3 (4.6-6.20); White Blood Count 11.1 K/mm3 (4.5-10.0)
[2023-07-26 13:52] LABS: Anion Gap 7 mmol/L (4-12); Blood Urea Nitrogen 10 mg/dL (9-20); Calcium 9.5 mg/dL (8.4-10.2); Carbon Dioxide 27 mmol/L (22-30); Chloride 103 mmol/L (98-107); Estimated Glomerular Filt Rate > 60; Glucose 106 mg/dL (65-110); Potassium 4.5 mmol/L (3.4-5.0); Sodium 137 mmol/L (137-145)
== END 2023-07-26 13:05 | disposition home or self-care (01) ==
LOC: ANHLAB 13:05
PROVIDERS: PCP Internal Medicine; Visit Provider Clinical Nurse Specialist
DX: K35.80 Unspecified acute appendicitis (principal); I10 Essential (primary) hypertension
CPT/HCPCS: 36415; 80048; 85025

== ENCOUNTER 2023-08-16 08:17 | Outpatient (CLI) | payer OTHER, SELFPAY ==
[2023-08-16 09:17] LABS: Basophils Percent Auto 0.5 % (0.2-1.2); Eosinophils Absolute Auto 0.2 K/mm3 (0-0.3); Eosinophils Percent Auto 2.9 % (0-4.4); Hematocrit 41.7 % (42.0-52.0); Hemoglobin 13.7 g/dL (14.0-18.0); Immature Granulocyte Absolute 0.02 K/mm3 (0.00-0.031); Immature Granulocyte Percent A 0.2 % (0-0.5); Lymphocytes Absolute Auto 2.41 K/mm3 (0.9-3.2); Lymphocytes Percent Auto 28.6 % (18.3-44.2); Mean Corpuscular HGB Conc 32.9 g/dl (32-36); Mean Corpuscular Hemoglobin 30.4 pg (26-34); Mean Corpuscular Volume 92.5 fl (80-100); Mean Platelet Volume 10.3 fl (7.4-10.4); Monocytes Absolute Auto 0.8 K/mm3 (0.1-0.6); Monocytes Percent Auto 8.9 % (2.6-8.5); Neutrophils Percent Auto 58.9 % (45.5-73.1); Platelet Count Result 458 k/mm3 (150-375); Red Blood Count 4.51 M/mm3 (4.6-6.20); White Blood Count 8.4 K/mm3 (4.5-10.0)
== END 2023-08-16 08:18 | disposition home or self-care (01) ==
LOC: ANHLAB 08:19
PROVIDERS: PCP Internal Medicine; Visit Provider Clinical Nurse Specialist
DX: D47.3 Essential (hemorrhagic) thrombocythemia (principal)
CPT/HCPCS: 36415; 85025

== ENCOUNTER 2023-09-04 14:40 | Outpatient (CLI) | payer OTHER, SELFPAY ==
[2023-09-04 14:56] LABS: Basophils Absolute Auto 0.1 K/mm3 (0.0-0.1); Eosinophils Absolute Auto 0.1 K/mm3 (0-0.3); Eosinophils Percent Auto 1.7 % (0-4.4); Hemoglobin 13.1 g/dL (14.0-18.0); Immature Granulocyte Absolute 0.01 K/mm3 (0.00-0.031); Immature Granulocyte Percent A 0.1 % (0-0.5); Lymphocytes Absolute Auto 2.27 K/mm3 (0.9-3.2); Lymphocytes Percent Auto 27.8 % (18.3-44.2); Mean Corpuscular HGB Conc 32.8 g/dl (32-36); Mean Corpuscular Hemoglobin 29.8 pg (26-34); Mean Corpuscular Volume 90.9 fl (80-100); Mean Platelet Volume 10.9 fl (7.4-10.4); Monocytes Absolute Auto 0.6 K/mm3 (0.1-0.6); Monocytes Percent Auto 7.8 % (2.6-8.5); Neutrophils Percent Auto 61.6 % (45.5-73.1); Platelet Count Result 219 k/mm3 (150-375); Red Cell Distribution Width 13.6 % (11.5-14.5); White Blood Count 8.2 K/mm3 (4.5-10.0)
[2023-09-04 16:32] LABS: Iron 96 ug/dL (49-181)
[2023-09-04 16:40] LABS: Alanine Aminotransferase 17 U/L (6-50); Albumin Level 4.4 g/dL (3.5-5.1); Alkaline Phosphatase 79 U/L (38-126); Anion Gap 9 mmol/L (4-12); Aspartate Amino Transferase 26 U/L (17-59); Bilirubin,Total 0.7 mg/dL (0.2-1.3); Blood Urea Nitrogen 11 mg/dL (9-20); CRP < 0.5 mg/dL (<1.0); Calcium 9.5 mg/dL (8.4-10.2); Carbon Dioxide 24 mmol/L (22-30); Chloride 107 mmol/L (98-107); Estimated Glomerular Filt Rate > 60; Glucose 94 mg/dL (65-110); Potassium 4.4 mmol/L (3.4-5.0); Sodium 140 mmol/L (137-145)
[2023-09-04 16:43] LABS: Percent Iron Saturation 30 % (20-50)
[2023-09-04 16:49] LABS: Erythrocyte Sedimentation Rate 16 mm/hr (0-20)
== END 2023-09-04 14:41 | disposition home or self-care (01) ==
LOC: ANHLAB 14:42
PROVIDERS: Nurse Practitioner Family; PCP Internal Medicine; Visit Provider Internal Medicine Hematology & Oncology
DX: D75.839 Thrombocytosis, unspecified (principal)
CPT/HCPCS: 36415; 80053; 82728; 83540; 83550; 85025; 85652; 86140

== ENCOUNTER 2023-12-12 08:22 | Outpatient (CLI) | payer OTHER, SELFPAY ==
[2023-12-12 08:50] LABS: Basophils Absolute Auto 0.1 K/mm3 (0.0-0.1); Basophils Percent Auto 0.8 % (0.2-1.2); Eosinophils Absolute Auto 0.2 K/mm3 (0-0.3); Eosinophils Percent Auto 2.8 % (0-4.4); Hematocrit 42.6 % (42.0-52.0); Hemoglobin 14.3 g/dL (14.0-18.0); Immature Granulocyte Absolute 0.01 K/mm3 (0.00-0.031); Immature Granulocyte Percent A 0.1 % (0-0.5); Lymphocytes Absolute Auto 2.16 K/mm3 (0.9-3.2); Lymphocytes Percent Auto 25.9 % (18.3-44.2); Mean Corpuscular HGB Conc 33.6 g/dl (32-36); Mean Corpuscular Hemoglobin 30.6 pg (26-34); Mean Platelet Volume 9.5 fl (7.4-10.4); Monocytes Absolute Auto 0.7 K/mm3 (0.1-0.6); Monocytes Percent Auto 8.4 % (2.6-8.5); Neutrophils Absolute Auto 5.2 K/mm3 (1.3-6.7); Platelet Count Result 419 k/mm3 (150-375); Red Blood Count 4.68 M/mm3 (4.6-6.20); Red Cell Distribution Width 13.6 % (11.5-14.5); White Blood Count 8.3 K/mm3 (4.5-10.0)
[2023-12-12 10:34] LABS: Iron 149 ug/dL (49-181)
[2023-12-12 10:38] LABS: Alanine Aminotransferase 19 U/L (6-50); Albumin Level 4.3 g/dL (3.5-5.1); Alkaline Phosphatase 76 U/L (38-126); Anion Gap 11 mmol/L (4-12); Aspartate Amino Transferase 29 U/L (17-59); Bilirubin,Total 0.7 mg/dL (0.2-1.3); Blood Urea Nitrogen 12 mg/dL (9-20); Calcium 8.8 mg/dL (8.4-10.2); Carbon Dioxide 23 mmol/L (22-30); Chloride 102 mmol/L (98-107); Estimated Glomerular Filt Rate > 60; Glucose 133 mg/dL (65-110); Potassium 3.9 mmol/L (3.4-5.0); Sodium 136 mmol/L (137-145)
[2023-12-12 11:01] LABS: Percent Iron Saturation 47 % (20-50)
== END 2023-12-12 08:23 | disposition home or self-care (01) ==
LOC: ANHLAB 08:27
PROVIDERS: Visit Provider Internal Medicine Hematology & Oncology
DX: D75.839 Thrombocytosis, unspecified (principal)
CPT/HCPCS: 36415; 80053; 82728; 83540; 83550; 85025

== ENCOUNTER 2024-06-23 08:23 | Outpatient (CLI) | payer OTHER, SELFPAY | END 2024-06-23 08:24 | disposition home or self-care (01) | LOC: GOSHIMG 08:23 | PROVIDERS: PCP Clinical Nurse Specialist; Visit Provider Clinical Nurse Specialist | DX: Z12.2 Encounter for screening for malignant neoplasm of respiratory organs (principal); F17.210 Nicotine dependence, cigarettes, uncomplicated | CPT/HCPCS: 71271 ==

== ENCOUNTER 2024-07-22 08:36 | Outpatient (CLI) | payer OTHER, SELFPAY ==
--- OUTSIDE RECORDS SUMMARY | 2024-07-22 08:49 | XMS_ITS | Clinical Summary ---
Author Organization [facility] Address [address] [place] [address] Care Team Providers Care Commuter Pilot Name Role Phone Robert Warren DO Primary Care Provider Allergies No known active allergies Medications sertraline (ZOLOFT) 25 mg tablet Take 25 mg by mouth daily. Active LORazepam (ATIVAN) 0.5 mg tablet Take 0.5 mg by mouth every 6 hours as needed for Anxiety. Active losartan (COZAAR) 50 mg tablet Take 50 mg by mouth daily. Active atorvastatin (LIPITOR) 10 mg tablet Take 10 mg by mouth daily. Active aspirin (MECHELLE CHEWABLE) 81 mg Tablet, Chewable Take 81 mg by mouth daily. Active albuterol (PROVENTIL,VENTOL IN) 0.63 mg/3 mL Solution for Nebulization Take 0.63 mg by inhalation one time only. Active FLUTICASONE PROPIONATE TOPICAL Apply to affected area. Active Active Problems No known active problems Family History Medical History Relation Name Comments Diabetes Brother Heart Disease Father Diabetes Mother Heart Disease Mother Relation Name Status Comments Brother Alive Father Mother Alive Social History Tobacco Use Types Packs/Day Years Used Date Smoking Tobacco: Every Day Cigarettes 0.5 44.8 Started: 07/17/1979; Last attempted to quit: 07/17/2023 Smokeless Tobacco: Never Tobacco Cessation:Ready to Q uit: Not Asked Alcohol Use Standard Drinks/Week Comments Never 0 (1 standard drink = 0.6 oz pur e alcohol) Sex and Gender Information Value Date Recorded Sex Assigned at Not on file Legal Sex Male 9:12 AM CDT Gender Identity Not on file Sexual Orientation Not on file Last Filed Vital Signs Vital Sign Reading Time Taken Comments Blood Pressure 169/83 12/17/2023 1:02 PM CDT did not take b/p meds today Pulse 91 12/17/2023 12:59 PM CDT Temperature 36.2 C (97.2 F) 12/17/2023 12:59 PM CDT Respiratory Rate 15 12/17/2023 12:5 9 PM CDT Oxygen Saturation 96% 12/17/2023 12: 59 PM CDT Inhaled Oxygen Concentration - - Weight 87.1 kg (192 lb) 12/17/2023 12:5 9 PM CDT Height 172.7 cm (5' 8 ) 09/04/2023 2:07 PM CDT Body Mass Index 29.19 09/04/2023 2:07 PM CDT Plan of Treatment Health Maintenance Due Date Last Done Comments Pre-Diabetes and Diabetes Screening 1965 DTAP/TDAP/TD VACCINES (1 - Tdap) 02/24/1983 COLORECTAL SCREENING 02/24/2009 Colorectal Cancer Screening 02/24/2009 FIT-DNA Q 3 years 02/24/2009 FIT/FOBT Q 1 year 02/24/2009 Flex Sig/CT Colonography Q 5 years 02/24/2009 Lung Cancer Screening 02/24/2014 ZOSTER VACCINE (1 of 2) 02/24/2014 INFLUENZA VACCINE (#1) 2023 Preventative Visit- Commercial 04/23/2024 RSV VACCINE (60+ or ) (1 - 1-dose 75+ series) 02/24/2039 HEPATITIS B VACCINES Aged Out No long er eligible based on patient's age to complete this topic Insurance [employer] MANAGED CHOICE Care Teams Commuter Pilot Relationship Specialty Start Date End Date Robert Warren DO [address] [facility] [address] [place] [address] PCP - General Internal Medicine 08/24/23
[2024-07-22 13:59] LABS: Basophils Absolute Auto 0.1 K/mm3 (0.0-0.1); Basophils Percent Auto 0.7 % (0.2-1.2); Eosinophils Absolute Auto 0.2 K/mm3 (0-0.3); Eosinophils Percent Auto 2.3 % (0-4.4); Hematocrit 42.7 % (42.0-52.0); Hemoglobin 13.7 g/dL (14.0-18.0); Immature Granulocyte Absolute 0.02 K/mm3 (0.00-0.031); Immature Granulocyte Percent A 0.2 % (0-0.5); Lymphocytes Absolute Auto 2.13 K/mm3 (0.9-3.2); Lymphocytes Percent Auto 20.8 % (18.3-44.2); Mean Corpuscular HGB Conc 32.1 g/dl (32-36); Mean Corpuscular Hemoglobin 30.8 pg (26-34); Mean Platelet Volume 10.3 fl (7.4-10.4); Monocytes Absolute Auto 0.8 K/mm3 (0.1-0.6); Monocytes Percent Auto 7.6 % (2.6-8.5); Neutrophils Percent Auto 68.4 % (45.5-73.1); Platelet Count Result 517 k/mm3 (150-375); Red Blood Count 4.45 M/mm3 (4.6-6.20); Red Cell Distribution Width 13.3 % (11.5-14.5); White Blood Count 10.2 K/mm3 (4.5-10.0)
[2024-07-22 14:28] LABS: Alanine Aminotransferase 17 U/L (6-50); Albumin Level 4.2 g/dL (3.5-5.1); Alkaline Phosphatase 82 U/L (38-126); Anion Gap 10 mmol/L (4-12); Aspartate Amino Transferase 40 U/L (17-59); Bilirubin,Total 0.3 mg/dL (0.2-1.3); Blood Urea Nitrogen 13 mg/dL (9-20); Calcium 8.5 mg/dL (8.4-10.2); Carbon Dioxide 25 mmol/L (22-30); Chloride 105 mmol/L (98-107); Cholesterol 161 mg/dL (0-200); Estimated Glomerular Filt Rate > 60; Glucose 109 mg/dL (65-110); HDL Direct 30 mg/dL; Potassium 4.5 mmol/L (3.4-5.0); Sodium 140 mmol/L (137-145); Triglycerides 205 mg/dL (<150)
[2024-07-22 14:39] LABS: LDL Cholesterol Direct 87 mg/dL
[2024-07-22 14:57] LABS: Prostate Specific Antigen 1.1 ng/mL (< OR = 4.0)
[2024-07-22 15:20] LABS: Creatinine Urine 171.4 mg/dL
[2024-07-22 15:35] LABS: MALB Creatinine Ratio < 3.5 mg/g (0-30); Microalbumin Urine Random < 6.0 mg/L (0-16.7)
[2024-07-22 16:24] LABS: Hemoglobin A1C 5.9 % (<5.7)
== END 2024-07-22 08:37 | disposition home or self-care (01) ==
LOC: ANHGOSHLAB 08:37
PROVIDERS: PCP Clinical Nurse Specialist; Visit Provider Clinical Nurse Specialist
DX: D47.3 Essential (hemorrhagic) thrombocythemia (principal); R73.9 Hyperglycemia, unspecified; Z72.0 Tobacco use; E78.49 Other hyperlipidemia; I10 Essential (primary) hypertension; Z12.5 Encounter for screening for malignant neoplasm of prostate
CPT/HCPCS: 36415; 80053; 80061; 82043; 83036; 84153; 85025; G0103

== ENCOUNTER 2025-01-26 08:03 | Outpatient (CLI) | payer OTHER, SELFPAY ==
--- OUTSIDE RECORDS SUMMARY | 2025-01-26 08:15 | XMS_ITS | Clinical Summary ---
Author Organization [facility] Address [address] [facility] [facility] [place] [address] Care Team Providers Care Branding Specialist Name Role Phone Robert Warren DO Primary [...] Active Active Problems No known active problems Encounters Date Type Department Care Team Description 12/10/2024 External Device Data [facility] ABSTRACTION Provider, Abstract 11/05/2024 External Device Data [facility] ABSTRACTION Provider, Abstract from Last 3 Months Family History Medical History Relation Name Comments Diabetes Brother Heart Disease Father Diabetes Mother Heart Disease Mother Relation Name Status Comments Brother Alive Father Mother Alive Social History Tobacco Use Types Packs/Day Years Used Date Smoking Tobacco: Every Day Cigarettes 0.5 45.3 Started: 07/17/1979; Last attempted to quit: 07/17/2023 [...] 9 PM CDT Height 172.7 cm (5' 8) 09/04/2023 2:07 PM CDT Body Mass Index 29.19 09/04/2023 2:07 PM CDT Plan of Treatment Health Maintenance Due Date Last Done Comments DTAP/TDAP/TD VACCINES (1 - Tdap) 02/24/1983 COLORECTAL SCREENING 02/24/2009 Colorectal Cancer Screening 02/24/2009 FIT-DNA Q 3 years 02/24/2009 FIT/FOBT Q 1 year 02/24/2009 Flex Sig/CT Colonography Q 5 years 02/24/2009 ZOSTER VACCINE (1 of 2) 02/24/2014 INFLUENZA VACCINE (#1) 2024 RSV VACCINE (60+ or ) (1 - 1-dose 75+ series) 02/24/2039 HEPATITIS B VACCINES Aged Out No long er eligible based on patient's age to complete this topic Insurance [employer] MA[employer]ED CHOICE Care Teams Branding Specialist Relationship Specialty Start Date End Date Robert Warren DO [address] [facility] [address] [place] [address] PCP - General Internal Medicine 08/24/23
[2025-01-26 12:56] LABS: Hematocrit 41.8 % (42.0-52.0); Hemoglobin 13.3 g/dL (14.0-18.0); Immature Granulocyte Percent A 0.3 % (0-0.5); Lymphocytes Absolute Auto 1.87 K/mm3 (0.9-3.2); Mean Corpuscular HGB Conc 31.8 g/dl (32-36); Mean Corpuscular Hemoglobin 30.1 pg (26-34); Mean Corpuscular Volume 94.6 fl (80-100); Nucleated Red Blood Cells Absolute Auto 0.000 K/mm3 (0.0-0.012); Nucleated Red Blood Cells Perc 0.0 % (0.0-0.2); Platelet Count Result 422 k/mm3 (150-375); Red Blood Count 4.42 M/mm3 (4.6-6.20); White Blood Count 10.0 K/mm3 (4.5-10.0)
[2025-01-26 13:38] LABS: Hemoglobin A1C 6.0 % (<5.7)
== END 2025-01-26 08:04 | disposition home or self-care (01) ==
LOC: ANHGOSHLAB 08:05
PROVIDERS: PCP Internal Medicine; Visit Provider Internal Medicine
DX: D47.3 Essential (hemorrhagic) thrombocythemia (principal); R73.01 Impaired fasting glucose
CPT/HCPCS: 36415; 83036; 85025

== ENCOUNTER 2025-04-10 01:48 | Day surgery (SDC) | payer OTHER, SELFPAY ==
[2025-03-24 13:31] VITALS: BMI 29.5
--- OUTSIDE RECORDS SUMMARY | 2025-04-10 01:50 | XMS_ITS | Clinical Summary ---
Author Organization [facility] Address [address] [place] [address] Care Team Providers Care Datastage Consultant Name Role Phone Robert Warren DO Primary [...] Date Smoking Tobacco: Every Day Cigarettes 0.5 45.6 Started: 07/17/1979; Last attempted to quit: 07/17/2023 [...] ) (1 - 1-dose 75+ series) 02/24/2039 Insurance [employer] MANA[employer]ED CHOICE Care Teams Datastage Consultant Relationship Specialty Start Date End Date Robert Warren DO [address] [address] PCP - General Internal Medicine 08/24/23
[2025-04-10 06:11] VITALS: BP 133/76; PULSE 102; RESP 16; TEMP 36.4; O2SAT 98; BMI 28.1
[2025-04-10] MEDS: LACTATED RINGERS 1,000 ML 150 ML IV CONT (06:17)
--- NOTE | 2025-04-10 07:09 | WPDANESEPPF ---
Anes - Initial Pre Proc Eval Procedure: Operation Date: 04/10/25 07:30 Proposed Procedures p Screening Colonoscopy - Bryan Askew MD Date/Time: 04/10/25 07:09 Surgeon: Bryan Askew MD Pre Op Diagnosis: Personal history of colon polyps, unspecified Patient Data Age: 60 Gender: M Height: 1.73 m Weight: 84 kg Last Vital Signs Temp 36.4 C 04/10/25 06:11 Pulse 102 H 04/10/25 06:11 Resp 16 04/10/25 06:11 BP 133/76 04/10/25 06:11 Pulse Ox 98 04/10/25 06:11 O2 Del Method Room Air 04/10/25 06:11 Allergies Allergy/AdvReac Type Severity Reaction Status Date / Time No Known Allergies Allergy Verified 04/10/25 06:10 Home Medications ?Medication ?Instructions ?Recorded ?Confirmed ?Type albuterol sulfate 90 mcg/actuation 1 puff inhalation Q4H PRN 04/25/19 03/24/25 History aerosol inhaler (Ventolin HFA) Shortness Of Breath Or Wheezing aspirin 81 mg tablet,delayed 81 mg PO DAILY 06/16/21 04/10/25 History release (Adult Low Dose Aspirin) fluticasone propionate 50 2 spray intranasal DAILY 11/09/22 04/10/25 History mcg/actuation nasal spray,suspension cannabidiol 100 mg/mL oral solution PO 07/24/24 07/24/24 History sertraline 50 mg tablet See Rx Instructions .Route 01/19/25 04/10/25 Rx .COMPLEX #45 tabs cetirizine 10 mg capsule (Zyrtec) 10 mg PO DAILY PRN allergy symptoms 01/26/25 03/24/25 History atorvastatin 10 mg tablet 10 mg PO DAILY #90 tabs 02/27/25 04/10/25 Rx losartan 50 mg tablet 50 mg PO DAILY #90 tabs 03/16/25 04/10/25 Rx lorazepam 0.5 mg tablet 0.5 mg PO BID PRN anxiety #60 tabs 03/23/25 04/10/25 Rx Patient hx anesthesia problems: none Family hx anesthesia problems: none Results Review: All pre-operative results and documents have been reviewed as part of the pre-operative evaluation. [facility] Past Medical History Medical History Acute appendicitis with perforation and generalized peritonitis, without abscess Encounter for surgical aftercare following surgery on the digestive system Hospital discharge follow-up Hyperglycemia Acute appendicitis Chronic back pain COPD (chronic obstructive pulmonary disease) Osteoarthritis involving multiple joints on both sides of body Plantar fasciitis Hyperlipidemia due to dietary fat intake Hypertension Anxiety Surgical History Surgical History History of laparoscopic appendectomy Status post rotator cuff repair H/O endoscopy Family History Family History Mother Diabetes mellitus Sibling Diabetes mellitus Father Family history of transient ischemic attacks Family history of coronary artery disease Social History Social History Smoking packs per day: 0.5 Smoking cigarettes per day: 10.0 Years smoked: 40 Smoking pack-years: 20.00 Smoking status: Current every day smoker Tobacco type: cigarettes Alcohol intake: never Substance use: current Substance use type: marijuana Other substance usage details: DAILY Lack of Transportation: No Lack of Food: Never True Current Housing: I Have Housing Concerned About Future Housing: No Difficulty Paying Gas/Electric Bills: No Difficulty Paying for Meds: No Currently Unemployed: No Education: High School Diploma/GED Difficulty w/ Childcare or Family Care: No Living arrangements: with family Spiritual care concerns: No Anes - Eval Final PreProcedure Day of Procedure 04/10/25 07:09 Patient weight: overweight Heart: regular rate and rhythm Lungs: clear to auscultation Airway: Mallampati scale class II Neurological: alert and oriented Last oral intake: >/= 8 hours ASA classification: III Emergent: no Anesthetic plan: proceed Anesthesia type and monitoring: general GIVS and standard monitoring Results Review: All pre-operative results and documents have been reviewed as part of the pre-operative evaluation. Informed Consent: The patient's anesthetic plan and its attendant risks and benefits were discussed with the patient/family/POA. Questions were solicited and answers provided to the satisfaction of the patient/family/POA.
--- NOTE | 2025-04-10 07:24 | PM.IMHP2 ---
H&P: HPI History of Present Illness Date/Time: 04/10/25 07:24 Chief Complaint: History of colon polyps Narrative: The patient has a history of colonic polyps, the last colonoscopy was 6 years ago. Review of Systems Review of Systems: All systems reviewed & are unremarkable except as noted in HPI and below PMFSH Past Medical History Medical History Acute appendicitis with perforation and generalized peritonitis, without abscess Encounter for surgical aftercare following surgery on the digestive system Hospital discharge follow-up Hyperglycemia Acute appendicitis Chronic back pain COPD (chronic obstructive pulmonary disease) Osteoarthritis involving multiple joints on both sides of body Plantar fasciitis Hyperlipidemia due to dietary fat intake Hypertension Anxiety Surgical History Surgical History History of laparoscopic appendectomy Status post rotator cuff repair H/O endoscopy Family History Family History Mother Diabetes mellitus Sibling Diabetes mellitus Father Family history of transient ischemic attacks Family history of coronary artery disease Social History Social History Smoking packs per day: 0.5 Smoking cigarettes per day: 10.0 Years smoked: 40 Smoking pack-years: 20.00 Smoking status: Current every day smoker Tobacco type: cigarettes Alcohol intake: never Substance use: current Substance use type: marijuana Other substance usage details: DAILY Lack of Transportation: No Lack of Food: Never True Current Housing: I Have Housing Concerned About Future Housing: No Difficulty Paying Gas/Electric Bills: No Difficulty Paying for Meds: No Currently Unemployed: No Education: High School Diploma/GED Difficulty w/ Childcare or Family Care: No Living arrangements: with family Spiritual care concerns: No Meds Home Medications and Allergies Home Medications ?Medication ?Instructions ?Recorded ?Confirmed ?Type albuterol sulfate 90 mcg/actuation 1 puff inhalation Q4H PRN 04/25/19 03/24/25 History aerosol inhaler (Ventolin HFA) Shortness Of Breath Or Wheezing aspirin 81 mg tablet,delayed 81 mg PO DAILY 06/16/21 04/10/25 History release (Adult Low Dose Aspirin) fluticasone propionate 50 2 spray intranasal DAILY 11/09/22 04/10/25 History mcg/actuation nasal spray,suspension cannabidiol 100 mg/mL oral solution PO 07/24/24 07/24/24 History sertraline 50 mg tablet See Rx Instructions .Route 01/19/25 04/10/25 Rx .COMPLEX #45 tabs cetirizine 10 mg capsule (Zyrtec) 10 mg PO DAILY PRN allergy symptoms 01/26/25 03/24/25 History atorvastatin 10 mg tablet 10 mg PO DAILY #90 tabs 02/27/25 04/10/25 Rx losartan 50 mg tablet 50 mg PO DAILY #90 tabs 03/16/25 04/10/25 Rx lorazepam 0.5 mg tablet 0.5 mg PO BID PRN anxiety #60 tabs 03/23/25 04/10/25 Rx Allergies Allergy/AdvReac Type Severity Reaction Status Date / Time No Known Allergies Allergy Verified 04/10/25 06:10 Vital Signs Vital Signs - 24 hr 04/10/25 06:11 Temperature 97.6 F Pulse Rate 102 H Respiratory Rate 16 Blood Pressure 133/76 Pulse Oximetry 98 Oxygen Delivery Room Air Exam Const: General: cooperative and healthy appearing Resp: Effort & Inspection: normal respiratory effort and able to speak in complete sentences Auscultation: clear to auscultation bilaterally Cardio: Rate: regular rate Rhythm: regular rhythm GI: Inspection: normal to inspection GI Palp: No No hepatosplenomegaly present Auscultation: normal bowel sounds Rectal Exam: deferred Skin: General skin exam: normal color Psych: Appearance: grossly normal Mental Status: mental status grossly normal Assessment and Plan Assessment and plan (1) Colon polyps: Code(s): K63.5 - Polyp of colon Status: Acute Assessment and Plan: The patient is deemed a good candidate for the procedure. Consent signed. Will proceed. Prior Studies I have reviewed the following patient records and this information was taken into consideration when formulating the assessment and plan.: previous labs, previous ER visits, previous hospitalizations and previous clinic visits
--- NOTE | 2025-04-10 07:41 | S_PTH ---
PATIENT: Carlos A Ott LOC: [facility] U#:[id number] AGE/SX: 60/M ROOM: RE04/10/[address]: Bryan Askew MD : 1965 BED: DIS: 04/10/2025 SPEC #: [id number] RECD: 04/10/25 09:20 STATUS: LINDA REPerlita #: [id number] CONNIE: 04/10/25 07:[address]: Bryan Askew DEPT: [facility] Surgical RECD BY: Fartun Rehman ENTERED: 04/10/25 09:21 SP TYPE: Surgical OTHR DR: Robert Warren DO Tissues: A - Colon Polypectomy B - Colon Polypectomy Procedures: Hematoxylin and Eosin Stain Gross and Microscopic Level 4
[2025-04-10 07:46] VITALS: BP 123/66; PULSE 79; RESP 18; O2SAT 92
[2025-04-10 07:56] VITALS: BP 136/86; PULSE 77; RESP 18; O2SAT 98
[2025-04-10 08:06] VITALS: BP 127/91; PULSE 78; RESP 18; O2SAT 99
== END 2025-04-10 08:15 | disposition home or self-care (01) ==
PROVIDERS: PCP Internal Medicine; Referring Provider Internal Medicine; Visit Provider Internal Medicine Gastroenterology
PROC: 0DJD8ZZ Inspection of Lower Intestinal Tract, Via Natural or Artificial Opening Endoscopic (ICD-10-PCS; CPT 45378; principal; 2025-04-10 07:30)
DX: Z12.11 Encounter for screening for malignant neoplasm of colon (principal); D12.2 Benign neoplasm of ascending colon; D12.3 Benign neoplasm of transverse colon; K64.8 Other hemorrhoids; K57.30 Diverticulosis of large intestine without perforation or abscess without bleeding; E78.5 Hyperlipidemia, unspecified; I10 Essential (primary) hypertension; F41.9 Anxiety disorder, unspecified; R73.9 Hyperglycemia, unspecified; J44.9 Chronic obstructive pulmonary disease, unspecified; G89.29 Other chronic pain; M54.9 Dorsalgia, unspecified; M15.0 Primary generalized (osteo)arthritis; F17.210 Nicotine dependence, cigarettes, uncomplicated; F12.90 Cannabis use, unspecified, uncomplicated; Z79.51 Long term (current) use of inhaled steroids; Z79.82 Long term (current) use of aspirin; Z98.890 Other specified postprocedural states; Z82.49 Family history of ischemic heart disease and other diseases of the circulatory system
CPT/HCPCS: 45385; 88305; J2003; J2704; J7120